=== PATIENT | female | born 1960 | race Caucasian/White ===

== ENCOUNTER 2016-07-05 05:50 | Day surgery (SDC) | payer BC ==
[2016-07-05] MEDS ORDERED: Lactated Ringers 1,000 ML IV SCH (06:30)
[2016-07-05] MEDS ORDERED: Lactated Ringers 1,000 ML IV ONE (06:34)
[2016-07-05] MEDS ORDERED: Versed 2 MG/2 ML Injection IV ONE (08:00)
[2016-07-05] MEDS ORDERED: DIPRIVAN 200 MG/20 ML IV ONE (08:00)
--- NOTE | 2016-07-05 08:09 | OP ---
SURGERY DATE/TIME: 07/05/201615 PREOPERATIVE DIAGNOSIS: Epigastric pain and screening colonoscopy. POSTOPERATIVE DIAGNOSES: 1) Hiatal hernia. 2) Mild gastritis. 3) Sigmoid diverticulosis. PROCEDURES: 1) Esophagogastroduodenoscopy with biopsy. 2) Colonoscopy. SURGEON: Dr. Murray. ANESTHESIA: Medications were given by the anesthesia department. BRIEF HISTORY: The patient is a 56 year old white female patient who presents now for endoscopic evaluation. She reports that she has been having epigastric pain. [id number] medications do help. She reports that she does take Meloxicam on a daily basis. The patient was felt the need to have endoscopic evaluation. She also desired to have a screening colonoscopy performed at the same time as she has never had her colon evaluated previously. The patient was appraised the risks of the procedure including risk of perforation, phlebitis, untoward reaction to medications, bleeding and missed lesions. The patient verbalized her understanding and desired to have the procedure performed. DESCRIPTION OF PROCEDURE: The patient was given the medications by the anesthesia department. She had continuous pulse oximetry, ECG monitoring, intermittent blood pressure monitoring and tidal CO2 monitoring during the examination. She was placed in the left lateral decubitus position. A bite block was placed and the flexible Olympus gastroscope was used to intubate the oropharynx. A view of the larynx was obtained and this was normal. The scope was easily introduced in the esophagus which appeared to be normal to the gastroesophageal junction where there appeared to be a hiatal hernia. The scope was passed into the stomach where normal gastric rugal folds were seen and these distended nicely with insufflation of air. The scope was passed along the greater curvature of the stomach to the antrum. The pylorus was encountered and intubated. The duodenum was inspected and found to be normal. The scope was withdrawn towards the stomach. A retroflex view of the lesser curvature, fundus and cardia regions of the stomach again confirmed the hiatal hernia. The scope was then redirected towards the gastric antrum and biopsies were obtained to rule out the presence of Helicobacter pylori-type organisms. The scope was then removed from the patient. Next, a digital rectal examination was performed and revealed normal anal sphincter tone and no masses. The flexible Olympus pediatric colonoscope was used to intubate the rectum. A view of the colon was developed sequentially to the cecum. Upon insertion and withdrawal, including a retroflex view in the rectum, there was noted mild sigmoid diverticulosis otherwise no other mucosal lesions were encountered. The scope was removed from the patient who tolerated the procedure well and was sent back to OP recovery in good condition. The prep was noted to be fair to good.
[2016-07-05 09:00] VITALS: BP 142/84; PULSE 76; O2SAT 98
== END 2016-07-05 08:50 | disposition home or self-care (01) ==
LOC: SDC 05:50
PROVIDERS: ATTEND Family Medicine
PROC: 0DB68ZX Excision of Stomach, Via Natural or Artificial Opening Endoscopic, Diagnostic (ICD-10-PCS; principal; 2016-07-05)
DX: K44.9 Diaphragmatic hernia without obstruction or gangrene (principal); K29.70 Gastritis, unspecified, without bleeding; K57.30 Diverticulosis of large intestine without perforation or abscess without bleeding; Z12.11 Encounter for screening for malignant neoplasm of colon
CPT/HCPCS: 00740; 36415; J2250; J2704

== ENCOUNTER 2022-04-28 14:26 | Emergency (ER) | payer BC ==
[2022-04-28] MEDS ORDERED: ZOFRAN ODT 4 MG PO ONE (15:12)
[2022-04-28] MEDS ORDERED: Sodium Chloride 0.9% 1000 ML 1,000 ML IV STA (15:12)
[2022-04-28] MEDS ORDERED: Zofran 4 MG/2 ML VIAL IV ONE (15:22)
[2022-04-28] MEDS ORDERED: Zofran 4 MG/2 ML VIAL ONE (15:23)
[2022-04-28] MEDS ORDERED: Sodium Chloride 0.9% 1000 ML 1,000 ML ONE (15:23)
[2022-04-28 15:44] LABS: Absolute Neutrophil Ct (ANC) 7.21 x10^3/uL (1.4-6.9); BASOPHIL % 0.3 % (0.0-0.4); Basophil (Absolute #) 0.03 x10^3/uL (0-0.4); Eosinophil % 0.5 % (0.00-5.0); Eosinophil (Absolute #) 0.05 x10^3/uL (0-0.5); Hemoglobin 11.2 g/dL (12.0-16.0); IMMATURE GRAN # 0.04 x10^3u/L (0.00-0.03); IMMATURE GRAN % 0.4 % (0.00-0.4); Lymphocyte (Absolute #) 1.07 x10^3/uL (1.0-4.6); Lymphocytes % 11.2 % (24.0-44.0); Mean Cell Volume 99.2 fL (78-100); Mean Corpuscular Hemoglobin 31.7 pg (26-32); Mean Platelet Volume 9.5 fL (7.5-11.0); Monocyte (Absolute #) 1.12 x10^3/uL (0.0-1.3); Monocytes % 11.8 % (0.0-12.0); Neutrophil % 75.8 % (36.0-66.0); Platelet Count 320 x10^3/uL (150-450); Red Blood Count 3.53 x10^6/uL (4.1-5.4); Red Cell Distribution Width 12.5 % (11.5-14.0); White Blood Count 9.5 x10^3/uL (4.0-10.5)
[2022-04-28 15:57] LABS: BILIRUBIN,TOTAL 0.8 mg/dL (0.2-1.3); Calcium 9.3 mg/dL (8.4-10.2); Creatinine 1 1.35 mg/dL (0.52-1.04); EST GLOMERULAR FILTRATION RATE 42.1 ML/MIN; Potassium 3.5 mmol/L (3.5-5.1); Total Protein 7.3 g/dL (6.3-8.2)
--- NOTE | 2022-04-28 15:58 | ERPHSYRPT ---
- History of Present Illness Time Seen by Provider: 04/28/22 15:00 Source: patient Exam Limitations: no limitations Patient Subjective Stated Complaint: Vomiting Triage Nursing Assessment: Patient brought into ED per w/c and transferred self to bed. Patient A+O X3. Patient's skin pink, warm and dry. Patient states she is 1 week post op from left knee replacement and was in PT today when they told her her blood pressure was low and she needed to be evaluated. Patient went to [facility] and was told to come to ER for evaluation for possible fluids. Patient states she has been having diarrhea, N/V since Monday. Patient denies pain or discomfort. Physician History: Patient is a 62-year-old female presents emergency department as a referral from [facility] for IV fluids. Patient had a left total knee replacement last week. 2 days ago patient developed nausea and vomiting. Patient has had several bouts of diarrhea. Patient went to physical therapy today. Patient felt a little lightheaded. Physical therapy check patient's blood pressure. They observed it to be low. Patient went to [facility]. [facility] felt patient needed IV fluids and so sent patient to our ED. Patient resting comfortably. No com plaints at this time. Vital stable. No chest pain or shortness of breath. No active diarrhea or nausea or vomiting. Patient resting comfortably. Patient's best friend at the bedside. They voiced no other complaints or concerns at this time. Patient recently had a left total knee arthroplasty. Complexity of problems addressed is moderate. Patient symptoms acute fluid loss/dehydration compl icated by lightheadedness. No chest pain or shortness of breath. No critical care time. Complexity of data reviewed and analyzed is limited. Test ordered. Test reviewed. Patient served as independent historian. No outside documentation reviewed. Risk of complication and or risk morbidity/mortality of patient management is moderate. Patient received IV fluids for rehydration. A prescription for Zofran reported to patient's pharmacy to address nausea. Patient agrees to follow-up with primary care doctor within 48 hours for reevaluation. Time spent to discharge is approximately 10 minutes. Vital stable. Patient ambulated in our ED. She had no lightheadedness. No dizziness. No chest pain or shortness of breath. Patient completely asymptomatic. Vital stable. Patient voices no other complaints or concerns at this time. Portions of this note were created with voice recognition technology. There may be grammatical, spelling, punctuation or sound alike errors Timing/Duration: day(s) (2 days) Severity: moderate Modifying Factors: Improves With: nothing Associated Symptoms: No abdominal pain, No shortness of breath, No cough, No fever, No loss of appetite, No malaise, No syncope Allergies/Adverse Reactions: No Known Allergies Allergy (Verified 04/28/22 14:40) Home Medications: Lisinopril/Hydrochlorothiazide [Lisinopril-Hctz 10-12.5 mg Tab] 1 each PO HS 12/19/14 [History] Pravastatin Sodium 80 mg PO HS 12/19/14 [History] Hx Influenza Vaccination/Date Given: No Hx Pneumococcal Vaccination/Date Given: No Immunizations Up to Date: Yes Travel Risk - International Travel Have you traveled outside of the country in past 3 weeks: No - Coronavirus Screening Are you exhibiting any of the following symptoms?: No Close contact with a COVID-19 positive Pt in past 14-21 Days: No - Vaccine Status Have you recieved a Covid-19 vaccination: Yes Permit Specialist: Unknown - Vaccination Dates Date of 2cond Vaccination (if applicable): na Dates if Unknown: na - Review of Systems Constitutional: No Symptoms, No Fever, No Chills Eyes: No Symptoms Ears, Nose, & Throat: No Symptoms Respiratory: No Symptoms, No Cough, No Dyspnea Cardiac: No Symptoms, No Chest Pain, No Edema, No Syncope Abdominal/Gastrointestinal: No Symptoms, No Abdominal Pain, No Nausea, No Vomiting, No Diarrhea Genitourinary Symptoms: No Symptoms, No Dysuria Musculoskeletal: No Symptoms, No Back Pain, No Neck Pain Skin: No Symptoms, No Rash Neurological: No Symptoms, No Dizziness, No Focal Weakness, No Sensory Changes Psychological: No Symptoms Endocrine: No Symptoms Hematologic/Lymphatic: No Symptoms Immunological/Allergic: No Symptoms All Other Systems: Reviewed and Negative - Past Medical History Pertinent Past Medical History: Yes Neurological History: No Pertinent History ENT History: No Pertinent History Cardiac History: High Cholesterol, Hypertension Respiratory History: No Pertinent History Endocrine Medical History: No Pertinent History Musculoskeletal History: Osteoarthritis GI Medical History: No Pertinent History History: No Pertinent History Psycho-Social History: Depression Female Reproductive Disorders: No Pertinent History Other Medical History: HX BILATERAL TSR REPLACEMENTS 2000. OTHER SX HX CHOLECYSTECTOMY, BILATERAL CARPAL TUNNEL. - Past Surgical History Past Surgical History: Yes Neuro Surgical History: No Pertinent History Cardiac: No Pertinent History Respiratory: No Pertinent History Gastrointestinal: No Pertinent History, Cholecystectomy, Hernia Repair Genitourinary: No Pertinent History Musculoskeletal: Orthopedic Surgery, Other Female Surgical History: No Pertinent History Other Surgical History: 2 right knee, 1 left knee OR; carpal tunnel OR bilateral hands. left knee replacement - Social History Smoking Status: Former smoker How long have you smoked: 10 yrs Exposure to second hand smoke: No Drug Use: none Patient Lives Alone: No - Nursing Vital Signs Nursing Vital Signs: Initial Vital Signs Temperature 97.6 F 04/28/22 14:43 Pulse Rate 104 H 04/28/22 14:43 Respiratory Rate 18 04/28/22 14:43 Blood Pressure 109/73 04/28/22 14:43 O2 Sat by Pulse Oximetry 97 04/28/22 14:43 Pain Scale Pain Intensity 0 - Physical Exam General Appearance: no apparent distress, alert Eye Exam: PERRL/EOMI, eyes nml inspection Ears, Nose, Throat Exam: normal ENT inspection, TMs normal, pharynx normal, moist mucous membranes, other (Dry during oral mucous membranes.) Neck Exam: normal inspection, non-tender, supple, full range of motion Respiratory Exam: normal breath sounds, lungs clear, airway intact, No respiratory distress Cardiovascular Exam: regular rate/rhythm, normal heart sounds, normal peripheral pulses Gastrointestinal/Abdomen Exam: soft, normal bowel sounds, No tenderness, No mass Back Exam: normal inspection, normal range of motion, No CVA tenderness, No vertebral tenderness Extremity Exam: normal inspection, normal range of motion, pelvis stable, other (Dressing intact left knee.) Neurologic Exam: alert, oriented x 3, cooperative, normal mood/affect, nml cer ebellar function, nml station & gait, sensation nml, No motor deficits Skin Exam: normal color, warm, dry, No rash Lymphatic Exam: No adenopathy SpO2: 95 O2 Delivery: Room Air - Course Nursing assessment & vital signs reviewed: Yes Ordered Tests: Active Orders 24 hr Category Date Time Status IV Insertion STAT Care 04/28/22 15:12 Active CBC W DIFF Stat Lab 04/28/22 15:40 Completed CMP Stat Lab 04/28/22 15:40 Completed Medication Summary Discontinued Medications Generic Name Dose Route Start Last Admin Trade Name Freq PRN Reason Stop Dose Admin Sodium Chloride 1,000 mls @ 999 mls/hr 04/28/22 15:12 04/28/22 16:29 Sodium Chloride 0.9% 1000 Ml IV 04/28/22 16:12 Infused .Q1H1M STA Infusion Sodium Chloride Confirm 04/28/22 15:23 Sodium Chloride 0.9% 1000 Ml Administered 04/28/22 15:24 Dose 1,000 mls @ ud .ROUTE .STK-MED ONE Ondansetron HCl 4 mg 04/28/22 15:12 04/28/22 15:22 Zofran 4 Mg/Udtablet Orally Disintegrating PO 04/28/22 15:13 Not Given STAT ONE Ondansetron HCl 4 mg 04/28/22 15:22 04/28/22 15:25 Ondansetron Hcl 4 Mg/2 Ml Vial IV 04/28/22 15:23 4 mg STAT ONE Administration Ondansetron HCl Confirm 04/28/22 15:23 Ondansetron Hcl 4 Mg/2 Ml Vial Administered 04/28/22 15:24 Dose 4 mg .ROUTE .STK-MED ONE Lab/Rad Data: Laboratory Result Diagrams 04/28/22 15:40 04/28/22 15:40 Laboratory Results 04/28/22 04/28/22 Range/Units 15:40 15:40 WBC 9.5 (4.0-10.5) x10^3/uL RBC 3.53 L (4.1-5.4) x10^6/uL Hgb 11.2 L (12.0-16.0) g/dL Hct 35.0 (35-47) % MCV 99.2 (78-100) fL MCH 31.7 (26-32) pg MCHC 32.0 (32-36) g/dL RDW 12.5 (11.5-14.0) % Plt Count 320 (150-450) x10^3/uL MPV 9.5 (7.5-11.0) fL Gran % 75.8 H (36.0-66.0) % Immature Gran % (Auto) 0.4 (0.00-0.4) % Nucleat RBC Rel Count 0.0 (0.00-0.1) % Eos # (Auto) 0.05 (0-0.5) x10^3/uL Immature Gran # (Auto) 0.04 H (0.00-0.03) x10^3u/L Absolute Lymphs (auto) 1.07 (1.0-4.6) x10^3/uL Absolute Monos (auto) 1.12 (0.0-1.3) x10^3/uL Absolute Nucleated RBC 0.00 (0.00-0.01) x10^3u/L Lymphocytes % 11.2 L (24.0-44.0) % Monocytes % 11.8 (0.0-12.0) % Eosinophils % 0.5 (0.00-5.0) % Basophils % 0.3 (0.0-0.4) % Absolute Granulocytes 7.21 H (1.4-6.9) x10^3/uL Basophils # 0.03 (0-0.4) x10^3/uL Sodium 140 (137-145) mmol/L Potassium 3.5 (3.5-5.1) mmol/L Chloride 97 L (98-107) mmol/L Carbon Dioxide 31 H (22-30) mmol/L Anion Gap 15.0 (5-15) MEQ/L BUN 23 H (7-17) mg/dL Creatinine 1.35 H (0.52-1.04) mg/dL Estimated GFR 42.1 ML/MIN Glucose 108 H (74-106) mg/dL Calcium 9.3 (8.4-10.2) mg/dL Total Bilirubin 0.80 (0.2-1.3) mg/dL AST 31 (14-36) U/L ALT 28 (0-35) U/L Alkaline Phosphatase 115 (38-126) U/L Serum Total Protein 7.3 (6.3-8.2) g/dL Albumin 4.0 (3.5-5.0) g/dL - Progress Progress: improved Progress Note: 62-year-old female presents to our ED with nausea vomiting and diarrhea. Patient was somewhat hypotensive during physical therapy. [facility] advised come to our ED for fluids. Blood work obtained. No significant abnormalities obtained other than elevated BUN/creatinine. Patient appears clinically dehydrated. Dry oral mucous membrane. Patient recently had a left total knee arthroplasty. No complications. Vital stable. Complexity of problems addressed is moderate. Acute with complication of mild hypotension and dizziness. Age gender, PMH/PQ , (co-morbidities that complicate presentation) , med class, PSH, (smoker) method of arrival, CC (acute, chronic or acute on chronic), State COPA level and why or if critical. vitals, Significant ROS/PE findings, working diagnoses, COPA (number of complexity of problem addressed) Minimal, Straight forward, one self limited or minor problem Low. Acute uncomplicated stable +/- admission, Any acute or chronic illness, 2 or more self-limited or minor problems. Moderate. Acute, complicated or with systemic illness. Chronic illness with exacerbation, New diagnosis with uncertain prognosis. 2 or more chronic stable illnesses. High. Any severe exacerbation or threat to bodily function, Any treatment side effects Critical care Yoni : 1. the presence of limb or life threatening condition, 2. Requiring a critical intervention to stabilize the patient, 3. and the time provided in care is greater than 30 minutes not including procedures (intubation/CPR). Critical care vitals: Examples include ACS with active chest pain, respiratory failure, acute renal failure, anemia requiring transfusion, coagulopathy requiring reversal, arrhythmias, coma, drug overdose, embolic disease, GI bleeding, hyperkalemia requiring treatment, hypertensive crisis, sepsis, multisystem trauma, stroke bowel ischemia, bowel perforation, ruptured aneurysm, shock, status epilepticus, DKA, O2 sat 90% or less, RR >30 or <5, Temp 104 or <96, HR>150 or <40, SBP 230 or <70, [id number] OR <40,GCS <12 30-74 MIN, DOCUMENT WHY USE TERMS LIKE PREVENT FURTHER DETERIORATION, REQUIRES IMMEDIATE ACTION State CODA level and why. testing ordered (labs/EKG/imaging). Number of imaging studies. Results obtained/reviewed/analyzed and that results used in MDM. State if patient is independent historian. Any outside documents reviewed. Any independent interpretation of tests/imaging/EKG. Discussion of tests results and management with outside provider CODA (amount and/or complexity of data reviewed and analyzed) Minimal or none Limited (1 of the 2 categories). Category 1, (Any 2 of the 3) -Review outside documents, -Order tests, -Review test results Category 2, -Independent historian other than pt. (8-80yo). parent, ems helicopter pilot sibling, (State if slitter creaser slotter helper was used) Moderate. (1 of the 3 categories) Category 1. (Any 3 of the 4) -Review outside documents -Order tests -Review test results, -Independent historian other than pt. (8-80yo) Category 2. Independent interpretation of a test/Imaging/EKG (not reported separately) Category 3. Discussion of test interpretation or management with provider/doctor (not reported separately) Extensive. (2 of the 3 categories) Category 1 (Any 3 of the 4) -Review of outside documents -Order test -Review test results -Independent historian other than pt. (8-80yo) Category 2. Independent interpretation of a test/Imaging/EKG (not reported separately) Category 3. Discussion of test interpretation or management with provider/doctor (not reported separately) CARLOS PM (risk of complications and or M&M of patient management) -Therapeutic interventions like immediate treatment, medication IM/IV/SQ controlled meds/-benzos/narcotics, nebulizer treatment, IVF, Blood transfusion, (any response to care), -Referrals, consults, discussion with admitting MD -Procedures (CPR, intubation, lac repair), offered, considered, performed, risks/benefits explained to patient, comorbidity effects -State potential risks of meds (blood thinners, anti-arrhythmics, insulin, blood transfusion reaction) -Prescription drugs. (including considered and or offered and why) -State any therapies considered or offered and why Minimal risk-superficial dressings, slings, gargle Low Risk-minor sx (lac repair), PT/OT (walk pt), IVF Moderate Risk-prescriptions, I&D, surgical decisions, Treatment limited by SDOH High Risk- IV/IM/SQ controlled meds, meds requiring monitoring, hospitalization, Nebulizer rx. DNR decision. Dispo (Admit, DC, Transfer, ) Plan of care and any SDOH that may impede follow up like ETOH use, smoking, homelessness, money, family support (ability to access/comply with plan) -Shared decision making (patient agrees to etc) -Time spent to discharge patient. -DC Dx, -DC vitals Level of EM service provided ? Level of EM service provided would be the same as the highest level assigned to COPA, CODA, CARLOS. (Straight forward (282), Low (283), Moderate (284), High (285), Critical Care) Document everything done in caring for the patient and why. Document if I discussed code status full code/DNR and everything in between Document any changes in working Diagnosis 04/28/22 17:35 04/28/22 17:37 Counseled pt/family regarding: lab results, diagnosis, need for follow-up, rad results - Departure Departure Disposition: Home Clinical Impression: Diarrhea, Dehydration, Nausea & vomiting Condition: Stable Critical Care Time: No Referrals: DESTINEE TRAORE [Primary Care Provider] - Follow up/PCP as directed Additional Instructions: Discharge/Care Plan FRANCES WHITE was seen on 04/28/22 in the Emergency Room. The patient was counseled regarding Diagnosis,Lab results, Imaging studies, need for follow up and when to return to the Emergency Room. Prescriptions given: Discharge Note I have spoken with the patient and/or caregivers. I have explained the patient's condition, diagnosis and treatment plan based on the information available to me at this time. I have answered the patient's and/or caregiver's questions and addressed any concerns. The patient and/or caregivers have as good understanding of the patient's diagnosis, condition and treatment plan as can be expected at this point. The vital signs have been stable. The patient's condition is stable and appropriate for discharge from the emergency department. The patient will pursue further outpatient evaluation with the primary care physician or other designated or consulting physician as outlined in the discharge instructions. The patient and/or caregivers are agreeable to this plan of care and follow-up instructions have been explained in detail. The patient and/or caregivers have received these instruction. The patient/and or caregivers are aware that any significant change in condition or worsening of symptoms should prompt an immediate return to this or the closest emergency department or call 911. Prescriptions: Ondansetron ODT 4 MG [Zofran Odt 4 mg] 4 mg PO Q6H PRN PRN #10 tablet PRN Reason: Vomiting
[2022-04-28 17:34] VITALS: BP 116/51; PULSE 104
[2022-04-28 17:36] VITALS: O2SAT 95
== END 2022-04-28 17:42 | disposition home or self-care (01) ==
LOC: ED 14:26
DX: E86.0 Dehydration (principal); R11.2 Nausea with vomiting, unspecified; R19.7 Diarrhea, unspecified; R42 Dizziness and giddiness; E78.5 Hyperlipidemia, unspecified; I10 Essential (primary) hypertension; Z79.899 Other long term (current) drug therapy
CPT/HCPCS: 36000; 36415; 80053; 85025; 96374; 99284; J2405